=== PATIENT | female | born 1990 | race Caucasian/White ===

== ENCOUNTER 2019-01-08 12:40 | Emergency (ER) | payer OTHER ==
[2019-01-08 13:06] VITALS: BP 125/95
[2019-01-08] MEDS ORDERED: ONDANSETRON DISINTEGRATING 4 MG TAB PO ONE (13:21)
[2019-01-08] MEDS ORDERED: ACETAMINOPHEN 500 MG TAB PO ONE (13:21)
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
== END 2019-01-08 14:13 | disposition home or self-care (01) ==
LOC: CED 12:40
DX: S06.0X0A Concussion without loss of consciousness, initial encounter (principal); V47.0XXA Car driver injured in collision with fixed or stationary object in nontraffic accident, initial encounter; Y92.410 Unspecified street and highway as the place of occurrence of the external cause; Y99.9 Unspecified external cause status; Y93.9 Activity, unspecified
CPT/HCPCS: 70450-PO; 99284-ER